=== PATIENT | female | born 1980 | race Caucasian/White ===

== ENCOUNTER 2020-03-13 07:26 | Outpatient (CLI) | payer BC, SELFPAY ==
--- NOTE | ~2020-03-13 | MM_ITS ---
EXAMINATION: MM screening ivis BI w gorge HISTORY: Screening mammogram TECHNIQUE: Craniocaudal and mediolateral oblique 3-D tomosynthesis images were obtained and synthetic 2-D images were generated. CAD analysis was submitted and interpreted. COMPARISON: No prior mammogram is available for comparison at this institution. BREAST PARENCHYMAL COMPOSITION: There are scattered areas of fibroglandular density. FINDINGS: There is no evidence of suspicious mass, calcification, or architectural distortion to sugg est malignancy in either breast. There has been no suspicious interval change. IMPRESSION: 1. No mammographic evidence of malignancy. 2. Recommend routine screening mammography in one year. BI-RADS Category 1: Negative Reviewed, dictated and finalized at location A.
== END 2020-03-13 07:27 | disposition home or self-care (01) ==
LOC: ANHIMG 07:32
PROVIDERS: Visit Provider Obstetrics & Gynecology
DX: Z12.31 Encounter for screening mammogram for malignant neoplasm of breast (principal)
CPT/HCPCS: 77063; 77067

== ENCOUNTER 2020-11-27 09:12 | Outpatient (CLI) | payer BC, SELFPAY ==
[2020-11-27 11:03] LABS: Hepatitis B Surface Antigen Negative (Negative)
[2020-11-27 11:49] LABS: HIV 1/2 Ab P24 Ag Result Reactive (Negative)
[2020-11-27 12:46] LABS: HIVc Retest 2 7.96
[2020-11-28 07:27] LABS: Rapid Plasma Reagin Non-Reactive (NonReactive)
[2020-11-29 11:26] LABS: HIV 1 2 Ag Ab 4th Gen w Rflxs Non-reactive (Non-reactive)
== END 2020-11-27 09:13 | disposition home or self-care (01) ==
PROVIDERS: Visit Provider Obstetrics & Gynecology
DX: Z11.3 Encounter for screening for infections with a predominantly sexual mode of transmission (principal)
CPT/HCPCS: 36415; 86592; 86695; 86696; 86703; 87340; 87389; G0432

== ENCOUNTER 2021-03-22 07:36 | Outpatient (CLI) | payer BC, SELFPAY ==
--- NOTE | ~2021-03-22 | MM_ITS ---
EXAMINATION: MM screening ivis BI w gorge HISTORY: Screening TECHNIQUE: Craniocaudal and mediolateral oblique 3-D tomosynthesis images were obtained and synthetic 2-D images were generated. CAD analysis was submitted and interpreted. COMPARISON: No prior mammogram is available for comparison at this institution. BREAST PARENCHYMAL COMPOSITION: There are scattered areas of fibroglandular density. FINDINGS: There is no evidence of suspicious mass, calcification, or architectural distortion to sugg est malignancy in either breast. There has been no suspicious interval change. IMPRESSION: 1. No mammographic evidence of malignancy. 2. Recommend routine screening mammography in one year. BI-RADS Category 1: Negative Reviewed, dictated and finalized at location A.
== END 2021-03-22 07:37 | disposition home or self-care (01) ==
LOC: ANHIMG 07:38
PROVIDERS: PCP Obstetrics & Gynecology; Visit Provider Obstetrics & Gynecology
DX: Z12.31 Encounter for screening mammogram for malignant neoplasm of breast (principal)
CPT/HCPCS: 77063; 77067

== ENCOUNTER 2022-07-29 08:41 | Outpatient (CLI) | payer OTHER, SELFPAY ==
--- NOTE | ~2022-07-29 | MM_ITS ---
EXAMINATION: MM screening ivis BI w gorge HISTORY: Screening mammogram TECHNIQUE: Craniocaudal and mediolateral oblique 3-D tomosynthesis images were obtained and synthetic 2-D images were generated. CAD analysis was submitted and interpreted. COMPARISON: 03/22/2021, 03/13/2020 bilateral screening mammogram examinations BREAST PARENCHYMAL COMPOSITION: There are scattered areas of fibroglandular density. FINDINGS: There is no evidence of suspicious mass, calcification, or architectural distortion to sugg est malignancy in either breast. There has been no suspicious interval change. IMPRESSION: 1. No mammographic evidence of malignancy. 2. Recommend routine screening mammography in one year. BI-RADS Category 1: Negative Reviewed, dictated and finalized at location A. NESS AND FINANCIAL COUNSEL
== END 2022-07-29 08:42 | disposition home or self-care (01) ==
LOC: ANHIMG 08:42
PROVIDERS: PCP Obstetrics & Gynecology; Visit Provider Obstetrics & Gynecology
DX: Z12.31 Encounter for screening mammogram for malignant neoplasm of breast (principal)
CPT/HCPCS: 77063; 77067

== ENCOUNTER 2022-12-25 12:14 | Emergency (ER) | payer OTHER, SELFPAY ==
[2022-12-25 12:27] VITALS: BP 139/84; PULSE 80; RESP 14; TEMP 36.3; O2SAT 100
--- NOTE | 2022-12-25 12:31 | ED.FEMALEGU ---
HPI - Female Genitourinary General Chief complaint: Urogenital-Female Stated complaint: uti symtoms Time Seen by Provider: 12/25/22 12:31 Source: patient Mode of arrival: ambulatory Limitations: no limitations History of Present Illness HPI Narrative: Patient is a 41-year-old female that presents with urinary urgency and burning for 2 days. Has taken some [id number] medications with mild relief. Denies any blood in urine, back pain, fevers, chills. MD elicited complaint: dysuria Related Data Allergies Allergy/AdvReac Type Severity Reaction Status Date / Time No Known Allergies Verified 12/25/22 12:35 Review of Systems Review of Systems: All systems reviewed & are unremarkable except as noted in HPI and below Constitutional: Constitutional: Denies chills, Denies fever(s), Denies headache(s), Denies malaise and Denies weakness Eyes: Eyes: Denies change in vision, Denies eye discharge and Denies irritation ENT: Denies otalgia, Denies headache(s), Denies nasal congestion, Denies nasal discharge, Denies sinus pain and Denies sore throat Cardiovascular: Cardiovascular: Denies chest pain, Denies edema, Denies palpitations and Denies dyspnea Respiratory: Respiratory: Denies cough and Denies dyspnea Gastrointestinal: Gastrointestinal: Denies abdominal pain, Denies diarrhea, Denies nausea and Denies vomiting Genitourinary: Genitourinary: Denies hematuria, Reports dysuria, Denies flank pain and Reports urinary urgency Musculoskeletal: Musculoskeletal: Denies back pain and Denies numbness Integumentary/Breasts: Skin/Breast: Denies pruritus and Denies rash Neurologic: Denies headache(s), Denies numbness and Denies weakness Psychiatric: Psychiatric: Reports no additional psychiatric complaints Endocrine: Endocrine: Denies palpitations PMFSH Surgical History Surgical History History of tonsillectomy Family History Family History (Updated 02/26/22 @ 17:56 by Denia West MA) Other AA (alcohol abuse) Social History Social History (Updated 02/27/22 @ 09:02 by Denia West MA) Smoking status: Never smoker Alcohol intake: current Alcohol use details: socially Substance use: never Substance use type: does not use Living arrangements: with family Occupation/Education: occupation Additional occupation/education comments: insurance Gender identity (if verbalized by the patient): Female Sexual Orientation (if Verbalized by the Patient): Straight or Heterosexual Comments At time of signature, agree with nursing past medical, surgical, social and family history. There is no relevant family history pertinent to the presenting complaint. Exam Const: General: cooperative, healthy appearing, comfortable, no acute distress and well nourished Nutritional Appearance: well nourished Orientation/consciousness: patient oriented x3 HENMT: Head: normocephalic and atraumatic Ears: external ears normal Face/Nose/Sinus: Normal external nose present, Normal nares present and normal facial exam Face and sinus: normal facial exam Eyes: General: appearance normal, both eyes and all related structures Pupils: Equal, round and reactive pupils present EOM: EOMs intact bilaterally Neck: Neck: normal visual inspection, full ROM and supple Chest: Chest palpation & inspection: normal inspection of the chest Resp: Effort & Inspection: normal respiratory effort and able to speak in complete sentences Cardio: Rate: regular rate Rhythm: regular rhythm GI: Inspection: normal to inspection GI Palp: No abdominal tenderness and Yes Soft to palpation : General: Yes no CVA tenderness Back/Spine/Pelvis: Back: no CVA tenderness Skin: General skin exam: normal color and no rashes or lesions noted Neuro: General: patient oriented x3 and moves all extremities Cranial nerves: Yes Equal, round and reactive pupils present Extrem: General: normal to inspecti
== END 2022-12-25 12:52 | disposition home or self-care (01) ==
PROVIDERS: Emergency Provider Nurse Practitioner Family
DX: N39.0 Urinary tract infection, site not specified (principal)
CPT/HCPCS: 81003; 99213; G0463

== ENCOUNTER 2023-11-18 15:28 | Outpatient (CLI) | payer OTHER, SELFPAY ==
--- NOTE | ~2023-11-18 | MM_ITS ---
EXAMINATION: MM screening ivis BI w gorge HISTORY: Screening TECHNIQUE: Craniocaudal and mediolateral oblique 3-D tomosynthesis images were obtained and synthetic 2-D images were generated. CAD analysis was submitted and interpreted. COMPARISON: Comparison to multiple prior studies sequentially, with oldest reviewed study dated 03/13. BREAST PARENCHYMAL COMPOSITION: Not dense: There are scattered areas of fibroglandular density. FINDINGS: There is a new mass in the upper outer quadrant of the right breast, middle third. There is a new focal asymmetry central aspect of the left breast on MLO view. IMPRESSION: 1. New right breast mass and focal left breast asymmetry. 2. Additional mammographic views and possible breast ultrasound are recommended. BI-RADS Category 0: Incomplete: Needs additional imaging evaluation. Reviewed, dictated and finalized at location A. ICE ADVISOR IMPRESSION: 1. New right breast mass and focal left breast asymmetry. 2. Additional mammographic views and possible breast ultrasound are recommended . BI-RADS Category 0: Incomplete: Needs additional imaging evaluation.
== END 2023-11-18 15:29 | disposition home or self-care (01) ==
LOC: ANHIMG 15:30
PROVIDERS: Visit Provider Obstetrics & Gynecology
DX: Z12.31 Encounter for screening mammogram for malignant neoplasm of breast (principal); R92.8 Other abnormal and inconclusive findings on diagnostic imaging of breast
CPT/HCPCS: 77063; 77067

== ENCOUNTER 2023-11-26 12:39 | Outpatient (CLI) | payer OTHER, SELFPAY ==
--- NOTE | ~2023-11-26 | MMUS_ITS ---
EXAMINATION: MM diagnostic ivis BI w gorge, US breast BI limited HISTORY: New right breast mass and focal left breast asymmetry reported on November 18, 2023 screenin g mammogram examination TECHNIQUE: Additional 3-D tomosynthesis images of both breasts were performed and synthetic 2-D image s were generated. CAD analysis was submitted and interpreted. High resolution bilateral upper outer a nd lower-outer quadrant breast ultrasound examination was performed. COMPARISON: November 18, 2023 bilateral screening mammogram FINDINGS: MAMMOGRAPHIC FINDINGS: Approximately 5 mm low-density circumscribed opacity is noted at mid depth in the upper outer right b reast (spot MLO Tomosynthesis image 20/62). Approximately 2 x 4.5 mm circumscribed opacity is noted in the lower inner quadrant of the left breas t (spot left MLO Tomosynthesis image 41/63). No suspicious mass, architectural distortion, malignant calcification, skin thickening or retraction of either breast is detected. ULTRASOUND: No suspicious mass or suspicious shadowing is noted in the upper outer or lower outer venkata drants of either breast. Right breast: 10:00 4 cm from nipple: 5.2 x 5.6 mm circular sonolucency with through transmission posterior enhance ment, no internal vascularity, consistent with simple cyst Left breast: 2:00 3 cm from nipple: Probable multi septated cyst measuring 2.8 x 3 mm IMPRESSION: 1. Benign findings; no evidence of malignancy 2. Routine annual mammographic screening is recommended BI-RADS Category 2: Benign finding(s). Reviewed, dictated and finalized at location A. SHING MACHINE OPERATOR AUTOMATIC IMPRESSION: 1. Benign findings; no evidence of malignancy 2. Routine annual mammographic screening is recommended BI-RADS Category 2: Benign finding(s).
== END 2023-11-26 12:40 | disposition home or self-care (01) ==
PROVIDERS: Visit Provider Obstetrics & Gynecology
DX: N63.11 Unspecified lump in the right breast, upper outer quadrant (principal); N64.89 Other specified disorders of breast
CPT/HCPCS: 76642; 77062; 77066; G0279

== ENCOUNTER 2024-11-21 07:24 | Outpatient (CLI) | payer OTHER, SELFPAY | END 2024-11-21 07:25 | disposition home or self-care (01) | LOC: ANHIMG 07:27 | PROVIDERS: PCP Family Medicine; Visit Provider Student in an Organized Health Care Education/Training Program | DX: Z12.31 Encounter for screening mammogram for malignant neoplasm of breast (principal) | CPT/HCPCS: 77063; 77067 ==

== ENCOUNTER 2025-08-07 06:12 | Day surgery (SDC) | payer OTHER, SELFPAY ==
[2025-05-11 12:48] VITALS: BMI 25.4
[2025-07-27 10:53] VITALS: BMI 25.0
[2025-08-07 06:45] VITALS: BMI 25.0
[2025-08-07] MEDS: LACTATED RINGERS 1,000 ML 150 ML IV CONT ×2 (07:00→08:23)
--- NOTE | 2025-08-07 07:54 | PM.IMHP ---
H&P: HPI History of Present Illness Date/Time: 08/07/25 07:54 Chief Complaint: Screening colonoscopy Narrative: This is the patient's first colonoscopy. There are no GI symptoms and there is no family history of colorectal cancer. Review of Systems Review of Systems: All systems reviewed & are unremarkable except as noted in HPI and below [facility] Past Medical History Medical History (Updated 08/07/25 @ 07:54 by Shalom Pantoja MD) Routine adult health maintenance Screening mammogram for breast cancer Breast asymmetry Breast mass, right Surgical History Surgical History History of tonsillectomy Family History Family History Father AA (alcohol abuse) Social History Social History Smoking status: Former smoker Tobacco type: cigarettes Alcohol intake: current Drinks per week: 4 Alcohol use details: socially Substance use: never Substance use type: does not use Living arrangements: with family Occupation/Education: occupation Additional occupation/education comments: insurance Gender identity (if verbalized by the patient): Female Sexual Orientation (if Verbalized by the Patient): Straight or Heterosexual Spiritual care concerns: No Agree to blood products: Yes Meds Home Medications and Allergies Home Medications ?Medication ?Instructions ?Recorded ?Confirmed ?Type No Home Medications 01/06/24 07/27/25 History Allergies Allergy/AdvReac Type Severity Reaction Status Date / Time No Known Allergies Allergy Verified 08/07/25 06:44 Exam Const: General: cooperative and healthy appearing Resp: Effort & Inspection: normal respiratory effort and able to speak in complete sentences Auscultation: clear to auscultation bilaterally Cardio: Rate: regular rate Rhythm: regular rhythm GI: Inspection: normal to inspection GI Palp: No No hepatosplenomegaly present Auscultation: normal bowel sounds Rectal Exam: deferred Skin: General skin exam: normal color Psych: Appearance: grossly normal Mental Status: mental status grossly normal Assessment and Plan Assessment and plan (1) Encounter for screening colonoscopy: Code(s): Z12.11 - Encounter for screening for malignant neoplasm of colon Status: Acute Assessment and Plan: The patient is deemed a good candidate for the procedure. Consent signed. Will proceed.
--- NOTE | 2025-08-07 08:02 | P.PNAN_ITS ---
Anes - Initial Pre Proc Eval Procedure: Operation Date: 08/07/25 08:00 Proposed Procedures p Screening Colonoscopy - Shalom Pantoja MD Date/Time: 08/07/25 08:02 Surgeon: Shalom Pantoja MD Pre Op Diagnosis: screening Pre Op Diagnosis: Screening Patient Data Age: 44 Gender: F Height: 1.65 m Weight: 68.1 kg Allergies Allergy/AdvReac Type Severity Reaction Status Date / Time No Known Allergies Allergy Verified 08/07/25 08:02 Home Medications ?Medication ?Instructions ?Recorded ?Confirmed ?Type No Home Medications 01/06/24 07/27/25 H istory Patient hx anesthesia problems: none Family hx anesthesia problems: none Results Review: All pre-operative results and documents have been reviewed as part of the pre- operative evaluation. [facility] Past Medical History Medical History (Updated 08/07/25 @ 07:54 by Shalom Pantoja MD) Routine adult health maintenance Screening mammogram for breast cancer Breast asymmetry Breast mass, right Surgical History Surgical History History of tonsillectomy Family History Family History Father AA (alcohol abuse) Social History Social History Smoking status: Former smoker Tobacco type: cigarettes Alcohol intake: current Drinks per week: 4 Alcohol use details: socially Substance use: never Substance use type: does not use Living arrangements: with family Occupation/Education: occupation Additional occupation/education comments: insurance Gender identity (if verbalized by the patient): Female Sexual Orientation (if Verbalized by the Patient): Straight or Heterosexual Spiritual care concerns: No Agree to blood products: Yes Comments Healthy lungs clear RRR Anes - Eval Final PreProcedure Day of Procedure 08/07/25 08:02 Results Review: All pre-operative results and documents have been reviewed as part of the pre-operative evaluation. Informed Consent: The patient's anesthetic plan and its attendant risks and benefits were discussed with the patient/family/POA. Questions were solicited and answers provided to the satisfaction of the patient/family/POA.
--- NOTE | 2025-08-07 08:04 | P.PNAN_ITS ---
Anes - Initial Pre Proc Eval Procedure: Operation Date: 08/07/25 08:00 Proposed Procedures p Screening Colonoscopy - Shalom Pantoja MD Date/Time: 08/07/25 08:04 Surgeon: Shalom Pantoja MD Pre Op Diagnosis: Screening Patient Data Age: 44 Gender: F Height: 1.65 m Weight: 68.1 kg Allergies Allergy/AdvReac Type Severity Reaction Status Date / Time No Known Allergies Allergy Verified 08/07/25 08:02 Home Medications ?Medication ?Instructions ?Recorded ?Confirmed ?Type No Home Medications 01/06/24 07/27/25 H istory Patient hx anesthesia problems: none Family hx anesthesia problems: none Results Review: All pre-operative results and documents have been reviewed as part of the pre- operative evaluation. [facility] Past Medical History Medical History (Updated 08/07/25 @ 07:54 by Shalom Pantoja MD) Routine adult health maintenance Screening mammogram for breast cancer Breast asymmetry Breast mass, right Surgical History Surgical History History of tonsillectomy Family History Family History Father AA (alcohol abuse) Social History Social History Smoking status: Former smoker Tobacco type: cigarettes Alcohol intake: current Drinks per week: 4 Alcohol use details: socially Substance use: never Substance use type: does not use Living arrangements: with family Occupation/Education: occupation Additional occupation/education comments: insurance Gender identity (if verbalized by the patient): Female Sexual Orientation (if Verbalized by the Patient): Straight or Heterosexual Spiritual care concerns: No Agree to blood products: Yes Anes - Eval Final PreProcedure Day of Procedure 08/07/25 08:04 Results Review: All pre-operative results and documents have been reviewed as part of the pre- operative evaluation. Informed Consent: The patient's anesthetic plan and its attendant risks and benefits were dis cussed with the patient/family/POA. Questions were solicited and answers provided to the satisfaction of the patient/family/POA.
--- NOTE | 2025-08-07 08:39 | P.PNAN_ITS ---
Anes - Initial Pre Proc Eval Procedure: Operation Date: 08/07/25 08:00 Proposed Procedures p Screening Colonoscopy - Shalom Pantoja MD Date/Time: 08/07/25 08:39 Surgeon: Shalom Pantoja MD Pre Op Diagnosis: Screening Patient Data Age: 44 Gender: F Height: 1.65 m Weight: 68.1 kg Allergies Allergy/AdvReac Type Severity Reaction Status Date / Time No Known Allergies Allergy Verified 08/07/25 08:02 Home Medications ?Medication ?Instructions ?Recorded ?Confirmed ?Type No Home Medications 01/06/24 07/27/25 H istory Patient hx anesthesia problems: none Family hx anesthesia problems: none Results Review: All pre-operative results and documents have been reviewed as part of the pre- operative evaluation. [facility] Past Medical History Medical History (Updated 08/07/25 @ 07:54 by Shalom Pantoja MD) Routine adult health maintenance Screening mammogram for breast cancer Breast asymmetry Breast mass, right Surgical History Surgical History History of tonsillectomy Family History Family History Father AA (alcohol abuse) Social History Social History Smoking status: Former smoker Tobacco type: cigarettes Alcohol intake: current Drinks per week: 4 Alcohol use details: socially Substance use: never Substance use type: does not use Living arrangements: with family Occupation/Education: occupation Additional occupation/education comments: insurance Gender identity (if verbalized by the patient): Female Sexual Orientation (if Verbalized by the Patient): Straight or Heterosexual Spiritual care concerns: No Agree to blood products: Yes Anes - Eval Final PreProcedure Day of Procedure 08/07/25 08:39 Heart: regular rate and rhythm Lungs: clear to auscultation Airway: Mallampati scale class II Neurological: alert and oriented Last oral intake: >/= 8 hours ASA classification: II Anesthetic plan: proceed Anesthesia type and monitoring: monitored anesthesia care Results Review: All pre-operative results and documents have been reviewed as part of the pre- operative evaluation. Informed Consent: The patient's anesthetic plan and its attendant risks and benefits were discussed with the patient/family/POA. Questions were solicited and answers provided to the satisfaction of the patient/family/POA.
[2025-08-07 08:55] VITALS: BP 111/81; PULSE 81; RESP 16; O2SAT 100
[2025-08-07 09:05] VITALS: BP 118/73; PULSE 74; RESP 18; O2SAT 100
[2025-08-07 09:15] VITALS: BP 119/78; PULSE 68; RESP 18; O2SAT 100
--- NOTE | 2025-08-07 12:42 | WPDANESPN ---
Anes - Prog Note Post-Op Date/Time: 08/07/25 12:42 Cardiovascular status: normal Respiratory status: normal Airway patency: baseline Mental status: baseline Post-Op hydration status: normal Vital Signs: Last Vital Signs Pulse 68 08/07/25 09:15 Resp 18 08/07/25 09:15 BP 119/78 08/07/25 09:15 Pulse Ox 100 08/07/25 09:15 Pain Score (VAS): 0 I/O: Intake & Output 08/06/25 08/07/25 08/07/25 23:59 07:59 15:59 Intake Total 1000 Balance 1000 Post-procedural complaints: none Patient Feedback: Patient satisfied with anesthetic care.
== END 2025-08-07 09:47 | disposition home or self-care (01) ==
PROVIDERS: PCP Nurse Practitioner Family; Referring Provider Nurse Practitioner Family; Visit Provider Internal Medicine Gastroenterology
PROC: 0DJD8ZZ Inspection of Lower Intestinal Tract, Via Natural or Artificial Opening Endoscopic (ICD-10-PCS; CPT 45378; principal; 2025-08-07 08:00)
DX: Z12.11 Encounter for screening for malignant neoplasm of colon (principal); D12.2 Benign neoplasm of ascending colon; K57.30 Diverticulosis of large intestine without perforation or abscess without bleeding; K63.5 Polyp of colon; D12.5 Benign neoplasm of sigmoid colon
CPT/HCPCS: 45385

== ENCOUNTER 2025-08-07 14:22 | Outpatient (NON) | payer OTHER, SELFPAY ==
--- NOTE | 2025-08-07 | S_PTH ---
PATIENT: Noreen Marie LOC: [facility] U#:[id number] AGE/SX: 44/F ROOM: RE08/07/[address]: Shalom Pantoja MD : 1980 BED: DIS: 08/07/2025 SPEC #: [id number] RECD: 08/09/25 07:44 STATUS: CHAVEZ REJose #: [id number] BEL: 08/07/25 00:[address]: Shalom Pantoja DEPT: [facility] Surgical RECD BY: Komal Alford ENTERED: 08/09/25 07:47 SP TYPE: Surgical OTHR DR: Yvonne Mcdaniel APRN Tissues: A - Colon Polypectomy B - Colon Polypectomy C - Colon Polypectomy D - Colon Polypectomy Procedures: Hematoxylin and Eosin Stain Gross and Microscopic Level 4
== END 2025-08-07 14:23 | disposition home or self-care (01) ==
LOC: ANHLAB 08-08 14:23
PROVIDERS: PCP Nurse Practitioner Family; Visit Provider Internal Medicine Gastroenterology
DX: Z12.11 Encounter for screening for malignant neoplasm of colon (principal); D12.2 Benign neoplasm of ascending colon; D12.5 Benign neoplasm of sigmoid colon; K63.5 Polyp of colon
CPT/HCPCS: 88305